=== PATIENT | female | born 1990 | race Caucasian/White ===

== ENCOUNTER → 2016-06-13 | Outpatient (CLI) | payer OTHER ==
--- NOTE | 2016-06-13 10:01 | US ---
EXAMINATION TYPE: US OB <= 14 wk fetus DATE OF EXAM: 06/13/2016 9:51 AM COMPARISON: NONE CLINICAL HISTORY: Z36 Confirm Dates. EXAM PERFORMED: Transabdominal (TA) EXAM MEASUREMENTS: GESTATIONAL AGE / DATING Physician Established: not established yet Dates by LMP: (12 weeks/6 days) EDC: 12/20/2016 Dates by First Scan: no previous Dates by Current Scan for: (11 weeks/1 days) EDC: 01/01/2017 MATERNAL ANATOMY Uterus: 11.0 x 8.2 x 6.3cm, wnl Right Ovary: 2.9 x 2.3 x 2.6cm, wnl Left Ovary: 4.3 x 2.7 x 4.3cm with a 3.0cm simple cyst Post CDS / Adnexa: wnl Presence of free fluid: no free fluid seen GESTATION / SURVEY CRL: 4.2 (11 weeks/1 days) MSD: wnl Yolk Sac (normal less than 6mm): 5mm Heart Rate: 173 bpm Rhythm: Normal IUP: Viable IUP IMPRESSION: viable iup, left ovarian cyst
[2016-06-13 10:33] LABS: CHCM 33.4; HCT 38.1 % (34.0-46.0); HDW 2.32; HGB 12.8 gm/dL (11.4-16.0); MCH 33.2 pg (25.0-35.0); MCHC 33.5 g/dL (31.0-37.0); Mean Platelet Volume 7.6; RBC 3.85 m/uL (3.80-5.40); RDW 11.8 % (11.5-15.5); WBC 9.8 k/uL (3.8-10.6)
[2016-06-13 10:51] LABS: Glucose 79 mg/dL (74-99); Non-African American GFR(MDRD) >60 (>60 ml/min/1.73 sqM)
[2016-06-13 11:21] LABS: Hepatitis B Surface Ag Index 0.06
== END | disposition home or self-care (01) ==
LOC: RADUSWWP 09:36
PROVIDERS: ATTEND Obstetrics & Gynecology
DX: O34.81 Maternal care for other abnormalities of pelvic organs, first trimester (principal); Z3A.11 11 weeks gestation of pregnancy
CPT/HCPCS: 76801; 82565; 82947; 85027; 86762; 86780; 86850; 86900; 86901; 87340

== ENCOUNTER → 2016-08-14 | Outpatient (CLI) | payer OTHER ==
--- NOTE | 2016-08-14 11:58 | US ---
EXAMINATION TYPE: US OB anatomy transabd DATE OF EXAM: 08/14/2016 9:47 AM COMPARISON: 06/13/2016 HISTORY: 26-year-old female [id number] Large for Dates LGA TECHNIQUE: Transabdominal (TA) FINDINGS: EXAM MEASUREMENTS: GESTATIONAL AGE / DATING Physician Established: (20 weeks/0 days) EDC: 01/01/2017 Dates by LMP: (21 weeks/5 days) EDC: 12/20/2016 Dates by First Scan: (20 weeks/0 days) EDC: 01/01/2017 Dates by Current Scan for: (19 weeks/4 days) EDC: 01/04/2017 SURVEY IUP: Single PLACENTA: Posterior PREVIA: Low Lying: tip of placenta 2.4cm from internal cervical os EDWIGE: 13.4 cm Normal CERVICAL LENGTH (transabdominal: norm > 3.0cm): 4.1 cm BIOMETRY PRESENTATION: Breech LIE: Transverse lie with head maternal Right BPD: 4.5 cm 19 weeks / 5 days HC: 17.0 cm 19 weeks / 4 days AC: 14.4 cm 19 weeks / 5 days FL: 3.2 cm 19 weeks / 6 days ESTIMATED WEIGHT IN GRAMS: 312 grams ESTIMATED WEIGHT IN LBS/OZS: 0 lbs. 11 oz. WEIGHT PERCENTAGE BASED ON ESTABLISHED DATE: 33 % HC/AC: 1.18 Normal FL/AC: 21.94 HEART RATE: 150 bpm RHYTHM: Normal ANATOMY SEEN (within normal limits): Lateral Vent (< 1 cm) 7.5 mm Cisterna Magna (< 1.1 cm) 0.4 cm Nuchal Fold (< 0.6 cm) 0.2 cm Cerebellum (varies with age) 1.8 cm Choroid Plexus (bilateral) Midline Falx Four Chamber Heart Stomach Situs Nose / Lips Diaphragm Kidneys (bilateral) Bladder Three Vessel Cord Longitudinal Spine Transverse Spine Legs (bilateral) ANATOMY SUBOPTIMALLY VISUALIZED: Cavus Septi Pellucidi Outflow tracts: LVOT/RVOT Cord Insert Arms (bilateral) - Humerus 1 is suboptimal HRIS COORDINATOR NOTES: Viable single IUP measuring 19 weeks 4 days with a heart rate of 150bpm and an est imated delivery date of 01/04/2017. IMPRESSION: 1. Single live intrauterine with established gestational age of 20 weeks 0 days by prior da ting scan. Current ultrasound biometry is concordant (19 weeks 4 days) placing the child at the 33rd percentile for weight. 2. Low-lying posterior placenta with the inferior tip measuring 2.4 cm from the internal cervical os. 3. A few structures on the survey were suboptimally visualized (CSP, outflow tracts, cord inser tion, and arms). If desired, the patient can be scheduled for a rescan of missed anatomy in 1 to 2 we eks. 4. Otherwise, the remaining structures appear normal.
== END | disposition home or self-care (01) ==
LOC: RADUSWWP 08:49
PROVIDERS: ATTEND Obstetrics & Gynecology
DX: O44.42 Low lying placenta NOS or without hemorrhage, second trimester (principal); Z3A.20 20 weeks gestation of pregnancy
CPT/HCPCS: 76811

== ENCOUNTER → 2016-08-27 | Outpatient (CLI) | payer OTHER ==
--- NOTE | 2016-08-27 08:54 | US ---
EXAMINATION TYPE: US OB Call Back DATE OF EXAM: 08/27/2016 8:42 AM COMPARISON: 08/14/2016 CLINICAL HISTORY: Z36 Encounter for screening of mother. GESTATIONAL AGE / DATING Dates by Initial Survey Scan: (21weeks/6 days) EDC: 01/01/17 HEART RATE: 150 bpm RHYTHM: Normal ANATOMY SEEN (second anatomic survey look): Cavus Septi Pellucidi Outflow tracts LVOT/RVOT Cord Insert Arms (bilateral) IMPRESSION: No abnormality noted
== END | disposition home or self-care (01) ==
LOC: RADUSWWP 07:36
PROVIDERS: ATTEND Obstetrics & Gynecology
DX: Z36 Encounter for antenatal screening of mother (principal)

== ENCOUNTER → 2016-09-19 | Outpatient (CLI) | payer OTHER ==
[2016-09-19 11:45] LABS: CH 33.7; CHCM 32.8; HCT 39.3 % (34.0-46.0); HDW 2.58; HGB 12.7 gm/dL (11.4-16.0); MCH 33.4 pg (25.0-35.0); MCHC 32.3 g/dL (31.0-37.0); MCV 103.5 fL (80.0-100.0); Macrocytosis Slight; Mean Platelet Volume 7.3; RDW 12.8 % (11.5-15.5); WBC 10.8 k/uL (3.8-10.6)
== END | disposition home or self-care (01) ==
LOC: LABWHC1 10:13
PROVIDERS: ATTEND Obstetrics & Gynecology
DX: Z34.82 Encounter for supervision of other normal pregnancy, second trimester (principal)
CPT/HCPCS: 36415; 82950; 85027

== ENCOUNTER 2016-12-19 23:13 | Inpatient (IN) | payer OTHER ==
[2016-12-19] MEDS ORDERED: CARBOPROST TROMETHAMINE 250 MCG/ML 1 ML AMP IM PRN (23:42)
[2016-12-19] MEDS ORDERED: LIDOCAINE 1% (PF) 10 MG/ML (30 ML SDV) SQ PRN (23:42)
[2016-12-19] MEDS ORDERED: METHYLERGONOVINE 0.2 MG/ML 1 ML AMP IM PRN (23:42)
[2016-12-19] MEDS ORDERED: TERBUTALINE 1 MG/ML VIAL SQ PRN (23:42)
[2016-12-19] MEDS ORDERED: OXYTOCIN 10 UNIT/ML 1 ML VIAL IM PRN (23:42)
[2016-12-19] MEDS ORDERED: LACTATED RINGERS 1,000 ML IV SCH (23:45)
[2016-12-19 23:51] LABS: Basophils % (A) 0 %; CH 32.4; CHCM 34.4; Eosinophils # (A) 0.2 k/uL (0-0.7); Eosinophils % (A) 1 %; HCT 34.7 % (34.0-46.0); HDW 2.85; HGB 11.7 gm/dL (11.4-16.0); Luc # (Auto) 0.25; Luc % (Auto) 2; Lymphocytes # (A) 1.9 k/uL (1.0-4.8); Lymphocytes % (A) 11 %; MCH 31.9 pg (25.0-35.0); MCHC 33.7 g/dL (31.0-37.0); MCV 94.7 fL (80.0-100.0); Mean Platelet Volume 9.1; Monocytes # (A) 0.7 k/uL (0-1.0); Monocytes % (A) 4 %; Neutrophils # (A) 13.8 k/uL (1.3-7.7); Neutrophils % (A) 82 %; RBC 3.67 m/uL (3.80-5.40); RDW 13.6 % (11.5-15.5); WBC 16.8 k/uL (3.8-10.6); WBC (Perox) 16.66
--- NOTE | 2016-12-20 00:09 | P.HPOB ---
History of Present Illness H&P Date: 12/20/16 Chief Complaint: LAbor. SROM 26 year old presents at 38 weeks 2 days with SROM at 2240 and in active labor. Her cervix is 8-9/90/-2 and she is princess every 2 minutes. heart tones are 135-140 with moderate variability and reactive. Review of Systems All systems: negative Constitutional: Denies chills, Denies fever Eyes: denies blurred vision, denies pain Ears, nose, mouth and throat: Denies headache, Denies sore throat Cardiovascular: Denies chest pain, Denies shortness of breath Respiratory: Denies cough Gastrointestinal: Denies abdominal pain, Denies diarrhea, Denies nausea, Denies vomiting Genitourinary: Denies dysuria, Denies hematuria Musculoskeletal: Denies myalgias Integumentary: Denies pruritus, Denies rash Neurological: Denies numbness, Denies weakness Psychiatric: Denies anxiety, Denies depression Endocrine: Denies fatigue, Denies weight change Past Medical History Past Medical History: No Reported History Additional Past Medical History / Comment(s): OB history: First was a spontaneous . This is her second . SHe had care with Dr Kam since 11 weeks. A+, Rub Imm, RPR NR, Hep B neg, normal anatomy US. GBS neg. History of Any Multi-Drug Resistant Organisms: None Reported Additional Past Surgical History / Comment(s): oral surgery Past Psychological History: No Psychological Hx Reported Smoking Status: Never smoker Past Alcohol Use History: None Reported Past Drug Use History: None Reported Medications and Allergies Home Medications Medication Instructions Recorded Confirmed Type Pnv No.95/Ferrous Fum/Folic AC 1 tab PO DAILY 12/19/16 12/19/16 History [ Multivitamin Tablet] Allergies Allergy/AdvReac Type Severity Reaction Status Date / Time No Known Allergies Allergy Verified 12/19/16 23:16 Exam Osteopathic Statement: *. No significant issues noted on an osteopathic structural exam other than those noted in the History and Physical/Consult. - Vital Signs Vital signs: Intake and Output 12/19/16 12/19/16 12/20/16 14:59 22:59 06:59 Other: Weight 87.543 kg Patient Weight 12/20/16 06:59 Weight 87.543 kg Heart: Regular rate and rhythm Lungs: Clear to auscultation bilaterally Abdomen: Soft, nontender Extremities: Negative Homans sign Results Result Diagrams: 12/19/16 23:40 Abnormal Lab Results - Last 24 Hours (Table) 12/19/16 Range/Units 23:40 WBC 16.8 H (3.8-10.6) k/uL RBC 3.67 L (3.80-5.40) m/uL Neutrophils # 13.8 H (1.3-7.7) k/uL Assessment and Plan (1) Spontaneous rupture of membranes Status: Acute (2) Normal labor Status: Acute Plan: 1. Admit to family place 2. Expectant management 3. Anticipate normal vaginal delivery
[2016-12-20 00:26] VITALS: BMI 32.1
--- NOTE | 2016-12-20 01:04 | P.PROBDLV ---
Vaginal Delivery Note - . Vaginal Delivery Note: 26-year-old at 38 weeks and 2 days presents with spontaneous rupture membranes at 2240 and in active labor. Cervix is 8-9 cm dilated, 90% effaced, and -1 station. She is princess every 2 minutes. heart tones 135-140 with moderate variability and reactive. She quickly progressed to complete at 00:36, pushed, delivered a viable female infant at 00:45 over intact perineum. Head delivered OA, anterior shoulder delivered gentle downward traction followed by posterior shoulder and rest of body. Nose mouth bulb suctioned, cord clamped and cut, infant placed on mother's abdomen. Apgars 8, 9, weight 6 pounds 12.5 ounces. Placenta delivered spontaneously, intact with three-vessel cord at 00:47. Vagina, cervix, perineum inspected. First-degree midline laceration was repaired with 3-0 Vicryl. Estimated blood loss 150 mL. Mother and baby in stable condition.
[2016-12-20] MEDS ORDERED: diphenhydrAMINE 50 MG/ML 1 ML VIAL IVP PRN ×2 (01:07)
[2016-12-20] MEDS ORDERED: IBUPROFEN 600 MG TAB PO PRN (01:07)
[2016-12-20] MEDS ORDERED: diphenhydrAMINE 50 MG CAP PO PRN (01:07)
[2016-12-20] MEDS ORDERED: diphenhydrAMINE 25 MG CAP PO PRN (01:07)
[2016-12-20] MEDS ORDERED: HYDROCORTISONE 2.5% RECTAL CREAM 30 GM TUBE RECTAL PRN (01:07)
[2016-12-20] MEDS ORDERED: LANOLIN CREAM 5 GM TUBE TOPICAL PRN (01:07)
[2016-12-20] MEDS ORDERED: SIMETHICONE 80 MG CHEWABLE PO PRN (01:07)
[2016-12-20] MEDS ORDERED: BENZOCAINE/MENTHOL SPRAY 1 GM/SPRAY AEROSOL TOPICAL PRN (01:07)
[2016-12-20] MEDS ORDERED: WITCH HAZEL 1 EACH MED..PAD TOPICAL PRN (01:07)
[2016-12-20] MEDS ORDERED: Acetaminophen-Codeine 300-30mg TAB PO PRN ×2 (01:07)
[2016-12-20] MEDS ORDERED: ZOLPIDEM 5 MG TAB PO PRN (01:07)
[2016-12-20] MEDS ORDERED: ACETAMINOPHEN TAB 325 MG TAB PO PRN (01:07)
[2016-12-20] MEDS ORDERED: OXYTOCIN 20 UNITS/1000 ML NS 1,000 ML IV SCH (01:15)
[2016-12-20] MEDS ORDERED: DIPH,PERTUS(ACELL)TETVAC-LF 0.5 ML VIAL IM ONE (06:15)
[2016-12-20] MEDS: SENNOSIDES-DOCUSATE SODIUM 1 EACH TAB PO SCH ×2 (11:35→21:40)
--- NOTE | 2016-12-21 09:20 | P.DS ---
Providers Date of admission: 12/19/16 23:29 Expected date of discharge: 12/21/16 Attending physician: Catrachito Kam Primary care physician: Catrachito Kam - Discharge Diagnosis(es) (1) Spontaneous rupture of membranes Current Visit: Yes Status: Acute (2) Normal labor Current Visit: Yes Status: Acute Hospital Course: Patient presented in active labor. She underwent a normal vaginal delivery. Her post course was uncomplicated. She denies N/V, F/C, CP, SOB or calf pain. She will be discharged home PPD #1 in stable condition to follow up with Dr Kam in 6 weeks. Plan - Discharge Summary New Discharge Prescriptions: No Action Pnv No.95/Ferrous Fum/Folic AC [ Multivitamin Tablet] 1 tab PO DAILY Discharge Medication List Pnv No.95/Ferrous Fum/Folic AC [ Multivitamin Tablet] 1 tab PO DAILY 05/06 [History] Follow up Appointment(s)/Referral(s): Reny Loomis DO [Doctor of Osteopathic Medicine] - 6 Weeks Discharge Disposition: HOME SELF-CARE
[2016-12-21 09:29] VITALS: BP 116/66; PULSE 100; RESP 18; TEMP 98.3
[2016-12-21] MEDS: SENNOSIDES-DOCUSATE SODIUM 1 EACH TAB PO SCH (09:30)
--- NOTE | 2016-12-24 08:03 | P.MSEPDOC ---
Presenting Problems - Arrival Data Date of Arrival on Unit: 12/19/16 Time of Arrival on Unit: 23:35 Mode of Transport: Wheelchair - Complaint OB-Reason for Admission/Chief Complaint: Possible Onset of Labor, Rule Out SROM Medical History - Information : 2 Para: 0 Term: 0 : 0 Abortions: Spontaneous or Elective: 0 Number of Living Children: 0 - Gestational Age Expected Date of Delivery: 01/01/17 Gestational Age by DANYEL (wks/days): 38 Weeks and 6 Days Review of Systems - Review of Systems Constitutional: No problems Breast: No problems ENT: No problems Cardiovascular: No problems Respiratory: No problems Gastrointestinal: No problems Genitourinary: No problems Musculoskeletal: No problems Neurological: No problems Skin: No problems Vital Signs - Temperature Temperature: 98.3 F Temperature Source: Oral - Pulse Right Sitting Brachial Pulse Rate: 100 Pulse Assessment Method: Automatic Cuff - Respirations Respiratory Rate: 18 Oxygen Delivery Method: Room Air - Blood Pressure Right Arm Sitting Blood Pressure: 116/66 Blood Pressure Mean: 82 Blood Pressure Source: Automatic Cuff Medical Screen Scoring (Pre) - Cervical Exam Dilation: Exam Deferred Effacement: Exam Deferred Membranes: Ruptured = 3 - Uterine Contractions Frequency: > or = 36 weeks =2 Duration: > 40 seconds = 2 - Maternal Vital Signs Maternal Temperature: N/A Maternal Respirations: N/A - Maternal Trauma Maternal Trauma: N/A - Assessment Heart Rate - NICHD Category: Category I (Normal) = 0 NST: Reactive - Total Score Total Score (Pre): 7 - Level of Risk Level of Risk: Medium (6-9) Physician Notification (Pre) - Physician Notified Physician Notified Date: 12/19/16 Physician Notified Time: 23:31 Physician/Practitioner Notifed:: DR MURPHY New Order Received: Yes Disposition - Disposition OB Disposition: Admit, LDRP Suite Discharge Date: 12/21/16 Discharge Time: 11:02 I agree with the RN Medical Screening Exam: Yes Risk & Benefit of care provided described in d/c instruction: Yes Diagnosis: ENCOUNTER FOR FULL-TERM UNCOMPLICATED DELIVERY
== END 2016-12-21 11:03 | disposition home or self-care (01) | DRG 775 ==
LOC: FBPOP 23:13 → 4FBP 23:29
PROVIDERS: ADMIT Obstetrics & Gynecology; ATTEND Obstetrics & Gynecology
PROC: 10E0XZZ Delivery of Products of Conception, External Approach (ICD-10-PCS; principal; 2016-12-20)
PROC: 0HQ9XZZ Repair Perineum Skin, External Approach (ICD-10-PCS; 2016-12-20)
DX: O70.0 First degree perineal laceration during delivery (principal); Z37.0 Single live birth; Z3A.38 38 weeks gestation of pregnancy
CPT/HCPCS: 84112; 85025; 88307; 90715; 99213